=== PATIENT | female | born 2000 ===

== ENCOUNTER 2021-08-08 16:05 | Outpatient (CLI) ==
[2021-08-08 16:29] VITALS: BP 115/64
[2021-08-08] MEDS ORDERED: PRENTAB9 PO (16:34)
[2021-08-08] MEDS ORDERED: HOME MED LIST COMPLETE! XX SCH (16:35)
[2021-08-08 17:19] VITALS: BP 184/77
[2021-08-08 17:21] VITALS: BP 110/59
[2021-08-08 17:35] VITALS: BP 121/70
--- NOTE | 2021-08-08 20:52 | IPNPDOC ---
Text Note Date of Service The patient was seen on 08/08/21. NOTE Labor and Delivery Triage Note: S: 21-year-old G2, P1 at 41 weeks 4 days presents with c/o contractions [id number] and pelvic pressure. Denies vaginal bleeding or LOF. Reports active movement. Patient is on register and part of the [facility]. She has been planning for home . She reports uncomplicated course and has been seen by a family practice doctor. O: vss, AF no ctx Cat 1 tracing Gen: well appearing, NAD Abd: gravid, soft, nttp cx: 1 cm / 50% effaced/-3 Transabdominal ultrasound: Cephalic, adequate fluid, active fetus A/P: 21-year-old 2 para 1 at 41 weeks 4 days has been gestational age n ot in active labor reassuring status. Discussed management options regarding postdates with patient. She presently desires a home but desires induction of labor by 42 weeks if she has not gone into labor. Patient has been placed on induction scheduled for our practice. We will contact her neighbor regarding her induction -home with Labor precautions and FKCs. MD DEVAN Duran Fishbone, I+O VSSaúl I+O Vital Signs Date Time Temp Pulse Resp B/P (MAP) Pulse Ox O2 Delivery O2 Flow Rate FiO2 08/08/21 17:35 69 121/70 (87) 08/08/21 17:21 98.3 18 ALEKSANDRA ERICKSON MD. Aug 08, 2021 20:52
== END 2021-08-08 17:39 | disposition home or self-care (01) ==
LOC: M LDO 16:05
PROVIDERS: ATTEND Obstetrics & Gynecology
DX: O47.1 False labor at or after 37 completed weeks of gestation (principal); Z3A.41 41 weeks gestation of pregnancy; O48.0 Post-term pregnancy
CPT/HCPCS: 59025; 76815; G0378; G0463